=== PATIENT | female | born 1960 | race Caucasian/White ===

== ENCOUNTER 2025-01-30 05:48 | Day surgery (SDC) | payer OTHER ==
[~2025-01-30] VITALS: Ht 162.6 cm; Wt 72.7 kg
[2025-01-30 06:39] VITALS: BP 134/76
[2025-01-30] MEDS ORDERED: NS 1,000 ML IV ONE ×2 (06:43→06:52)
[2025-01-30] MEDS ORDERED: Naloxone HCl 0.4MG / ML 1ML Vial ONE (06:51)
[2025-01-30] MEDS ORDERED: Midazolam HCl 1MG / ML 2ML Vial ONE (06:52)
[2025-01-30] MEDS ORDERED: Flumazenil 0.1 MG / ML 5ML Vial ONE (06:52)
[2025-01-30] MEDS ORDERED: FentaNYL Citrate 50 MCG/ML 2 ML Injection ONE (06:52)
[2025-01-30] MEDS ORDERED: Phenylephrine HCl 100 MCG/ML-NS 10MLSYR (1MG/10ML) ONE (06:52)
[2025-01-30 09:29] VITALS: BP 148/99
--- NOTE | 2025-01-30 09:30 | NUR ---
PATIENT ARRIVED TO RECOVERY ROOM IN BED WITH HOB FLAT. PATIENT DROWSY BUT CONVERSING APPROPRIATELY.DRESSING SITE C/D/I. NO EVIDENCE OF BLEEDING OR OOZING. VSS ON RA.
[2025-01-30 09:45] VITALS: BP 151/96
[2025-01-30 10:00] VITALS: BP 150/105
--- NOTE | 2025-01-30 10:00 | NUR ---
PATIENT TOLERATING PO INTAKE WELL. PATIENT DENYING ANY PAIN. DRESSING C/D/I, NO EVIDENCE OF BLEEDING/OOZING. VSS ON RA. PATIENT CONVERSING WITH SPOUSE AT BEDSIDE.
--- NOTE | 2025-01-30 10:30 | NUR ---
PATIENT TRANSFERRING TO WHEELCHAIR AND USING BATHROOM AT BASELINE. PATIENT VOIDING WITHOUT DIFFICULTY. DISCHARGE INSTRUCTIONS REVIEWED WITH PATIENT AND SPOUSE, ALL QUESTIONS WERE ANSWERED. VSS ON RA.
[2025-01-30 10:49] VITALS: BP 136/74
--- NOTE | 2025-01-30 11:00 | NUR ---
PATIENT DISCHARGED HOME AT THIS TIME. ALL PATIENT BELONGINGS LEFT WITH PATIENT. PIV REMOVED WITHOUT DIFFICULTY, CATHETER INTACT. DRESSING SITE C/D/I. APTIENT DENYING ANY PAIN.
== END 2025-01-30 11:00 | disposition home or self-care (01) ==
LOC: MHTC 05:48 → CT 07:00 → MHTC 11:00
DX: N28.89 Other specified disorders of kidney and ureter (principal)
CPT/HCPCS: 50593; 77013; 99152; 99153; C2618; J2250; J2310; J2371; J3010; J7030; Q9967